=== PATIENT | female | born 1960 | race Caucasian/White ===

== ENCOUNTER 2017-02-04 18:42 | Emergency (ER) | payer OTHER, BC ==
[~2017-02-04] VITALS: Ht 160 cm; Wt 77.1 kg
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
[2017-02-04] MEDS ORDERED: CYCL10TA9 PO (19:51)
[2017-02-04 20:10] VITALS: BP 156/106
== END 2017-02-04 20:10 | disposition home or self-care (01) ==
LOC: EDUNIT# 18:42 → ER 18:43
DX: M62.830 Muscle spasm of back; V43.52XA Car driver injured in collision with other type car in traffic accident, initial encounter; Z87.828 Personal history of other (healed) physical injury and trauma
CPT/HCPCS: 70450; 72125; 99283

== ENCOUNTER → 2017-10-26 | Outpatient (CLI) | payer OTHER ==
[~2017-10-26] MED LIST: CYCL10TA9 PO
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
== END ==
LOC: RAD 10:39
PROVIDERS: ATTEND Internal Medicine
DX: R41.3 Other amnesia (principal); R20.0 Anesthesia of skin
CPT/HCPCS: 70551; 72141

== ENCOUNTER → 2017-12-07 | Outpatient (CLI) | payer OTHER ==
[~2017-12-07] MED LIST changes: +RT-ALBUTEROL SULF 2.5 MG/3 ML PRE-MIX VIAL INH ONE
== END ==
LOC: RAD 07:02
PROVIDERS: ATTEND Nurse Practitioner Family
DX: J98.01 Acute bronchospasm (principal); Z53.8 Procedure and treatment not carried out for other reasons
CPT/HCPCS: 94060; 94726; 94729

== ENCOUNTER → 2018-07-14 | Outpatient (CLI) | payer OTHER ==
[~2018-07-14] MED LIST changes: +RT-ALBUTEROL SULF 2.5 MG/3 ML PRE-MIX VIAL ONE
== END ==
LOC: RT 15:14
PROVIDERS: ATTEND Nurse Practitioner Family
DX: J45.909 Unspecified asthma, uncomplicated (principal); R05 Cough; R06.00 Dyspnea, unspecified; R49.0 Dysphonia
CPT/HCPCS: 94060